=== PATIENT | female | born 1980 | race Caucasian/White ===

== ENCOUNTER 2020-08-08 12:14 | Outpatient (CLI) | payer OTHER, SELFPAY ==
--- NOTE | ~2020-08-08 | XR_ITS ---
XR foot LT min 3V DATE: 08/08/2020 12:52 INDICATION: Positive rheumatoid factor. Left foot pain. TECHNIQUE: 4 views COMPARISON: None FINDINGS: No fracture or dislocation, periosteal reaction or bone destruction. No erosive change. Rachel nt spaces are preserved. IMPRESSION: Negative Reviewed, dictated and finalized at location B. VIORAL CONSULTANT IMPRESSION: Negative
--- NOTE | ~2020-08-08 | XR_ITS ---
XR shoulder LT min 2V DATE: 08/08/2020 12:52 INDICATION: Left shoulder pain. Rheumatoid factor positive. TECHNIQUE: 4 views COMPARISON: None FINDINGS: No fracture or dislocation, periosteal reaction or bone destruction or abnormal soft tissue calcification. Normal alignment and preservation of joint spaces at the acromioclavicular and glenoh umeral joints. IMPRESSION: Negative Reviewed, dictated and finalized at location B. NG COACH IMPRESSION: Negative
--- NOTE | ~2020-08-08 | XR_ITS ---
XR hand BI arthritis min 3V DATE: 08/08/2020 12:52 INDICATION: Positive rheumatoid factor. Bilateral hand pain. TECHNIQUE: 4 views of each hand COMPARISON: None FINDINGS: No fracture, dislocation, periosteal reaction or bone destruction or erosive change. Joint spaces are preserved. No chondrocalcinosis. IMPRESSION: Negative Reviewed, dictated and finalized at location B. H ASSISTANT IMPRESSION: Negative
--- NOTE | ~2020-08-08 | XR_ITS ---
XR shoulder RT min 2V 08/08/2020 12:52 Indication: Right shoulder pain Procedure: 4 views right shoulder Comparison: No prior studies for comparison. Findings: No fracture, subluxation or dislocation. No significant soft tissue abnormality. No foreign bodies. Impression: 1: No acute bone or joint abnormality. Reviewed, dictated and finalized at location A. HOUSE CLERK Impression: 1: No acute bone or joint abnormality.
--- NOTE | ~2020-08-08 | XR_ITS ---
XR foot RT min 3V DATE: 08/08/2020 12:52 INDICATION: Right foot pain. Positive rheumatoid factor. TECHNIQUE: 4 views COMPARISON: None FINDINGS: Joint spaces are preserved. No erosive change. No fracture, dislocation, periosteal reaction or bone destruction. IMPRESSION: Negative Reviewed, dictated and finalized at location B. ER SORTER MACHINE IMPRESSION: Negative
== END 2020-08-08 12:15 | disposition home or self-care (01) ==
DX: M25.50 Pain in unspecified joint (principal); R76.8 Other specified abnormal immunological findings in serum
CPT/HCPCS: 73030; 73130; 73630

== ENCOUNTER 2021-02-09 22:32 | Emergency (ER) | payer OTHER, SELFPAY ==
--- NOTE | ~2021-02-09 | CT_ITS ---
EXAMINATION: CT brain wo con EXAM DATE: 02/09/2021 23:10 INDICATION: Head injury head injury to base of skull. Pain with confusion. TECHNIQUE: Spiral CT of the head was performed without contrast. Axial, coronal and sagittal images were reviewed. The dose-length product (DLP) for this examination was 605.33 mGy-cm. The exposure w as tailored according to patient size, and iterative reconstruction (ASIR) was used as additional dos e reduction technique. There is no prior study for comparison. FINDINGS: There is no acute intraparenchymal hemorrhage. No evidence of intraparenchymal brain mass lesion. No evidence of acute infarction. There is no mass effect or midline shift. The ventricles are normal in size. There are no extra-axial collections. There are no acute calvarial fractures. T he orbits are unremarkable. Soft tissue is unremarkable. Bilateral nasal cavity opacity and mild bi lateral ethmoid mucoperiosteal thickening. IMPRESSION: 1. No acute intracranial findings. 2. Sinus, ethmoid opacity. Reviewed, dictated and finalized at location G.
[2021-02-09 22:35] VITALS: BP 133/85; PULSE 98; RESP 20; TEMP 36.6; O2SAT 99
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
[2021-02-09] MEDS: IBUPROFEN 600 MG TABLET PO (23:05)
[2021-02-09] MEDS: LIDO 1%/EPINEPHRINE 1:100,000 20 ML VIAL INFILTRATE (23:14)
[2021-02-09 23:21] VITALS: BP 170/106; PULSE 107; RESP 20; TEMP 37.6; O2SAT 97
[2021-02-09 23:24] VITALS: BP 144/78; PULSE 88; RESP 20; O2SAT 99
== END 2021-02-09 23:34 | disposition home or self-care (01) ==
PROVIDERS: Emergency Provider Emergency Medicine
DX: S01.01XA Laceration without foreign body of scalp, initial encounter (principal); Y04.8XXA Assault by other bodily force, initial encounter
CPT/HCPCS: 12001; 70450; 99282; 99284; A9270

== ENCOUNTER 2021-10-09 09:33 | Emergency (ER) | payer OTHER, SELFPAY ==
[2021-10-09 09:40] VITALS: BP 144/84; PULSE 88; RESP 16; TEMP 36.4; O2SAT 100
--- NOTE | 2021-10-09 11:41 | ED.DENTAL ---
HPI - Dental/Oral General Chief complaint: Dental/Oral Stated complaint: swelling to face, poss dental issue Time Seen by Provider: 10/09/21 11:14 History of Present Illness HPI Narrative: Patient is a 41-year-old female who presents ER with facial swelling. She had dental pain last night to her upper frontal mouth with mild swelling. She woke up this morning and her upper lip was even more swollen. Pain is radiating to the ears bilaterally. No fevers chills or sweats. She has a bump above her eighth tooth. Related Data Allergies Allergy/AdvReac Type Severity Reaction Status Date / Time morphine Allergy Mild Itching Verified 01/05/16 20:33 MEPERIDINE HCL Allergy Unknown Uncoded 01/05/16 19:40 Review of Systems Constitutional: Constitutional: Denies chills and Denies fever(s) ENT: Denies dysphagia and Denies nasal congestion Comments: Dental pain Respiratory: Respiratory: Denies cough and Denies dyspnea PMFSH Past Medical History Medical History (Updated 10/09/21 @ 11:42 by Zachary Ron MD) Endometriosis GERD (gastroesophageal reflux disease) Surgical History Surgical History (Updated 02/09/21 @ 23:01 by Pavel Chin MD) H/O pelvic surgery Social History Social History (Updated 02/09/21 @ 23:02 by Pavel Chin MD) Smoking packs per day: 0.75 Smoking cigarettes per day: 15.0 Smoking status: Current every day smoker Tobacco type: cigarettes Alcohol intake: current Substance use: current Substance use type: marijuana Exam Narrative: GENERAL: Well-appearing, well-nourished, and in no acute distress. HEAD: Normocephalic, atraumatic. ENT: Mucous membranes moist. Apical abscess tooth #8. Mild swelling of the upper and lower lips. Normal posterior oropharynx. Tolerating oral secretions without issue. No stridor. NECK: Supple. NEURO: Alert and oriented x3. PSYCH: Normal mood and affect. Course Course Emergency Course: Patient tolerated drainage of abscess. Will start antibiotics and pain medication. Discharge home Vital Signs Vital signs: Vital Signs Temperature 97.6 F 10/09/21 09:40 Pulse Rate 88 10/09/21 09:40 Respiratory Rate 16 10/09/21 09:40 Blood Pressure 144/84 H 10/09/21 09:40 Pulse Oximetry 100 10/09/21 09:40 Temperature 97.6 F 10/09/21 09:40 Pulse Rate 88 10/09/21 09:40 Respiratory Rate 16 10/09/21 09:40 Blood Pressure 144/84 H 10/09/21 09:40 Pulse Oximetry 100 10/09/21 09:40 Procedures Abscess I/D oral: Date of Incision: 10/09/21 Time of Incision: 11:20 Local Anesthetic: none Technique: needle aspiration Irrigation: No Packing used?: none I&D Results: Pus Complications: other (none) Discharge Plan Discharge Clinical Impression: Dental abscess Patient Disposition: Home, Self-Care Condition: Stable Instructions: Antibiotic Form, Dental Abscess (ED) Additional Instructions: Follow-up with a dentist for further evaluation for your dental issues. Return the ER if you cannot breathe, you cannot swallow, you have additional concerns. Prescriptions: New amoxicillin-pot clavulanate 875-125 mg tablet 1 tablet PO Q12H Qty: 14 RF: 0 hydrocodone-acetaminophen 5-325 mg tablet 1 tablet PO Q6H PRN (Reason: pain) Qty: 12 RF: 0 Follow-up/Referrals: PHYSICIAN,LICENSED PSYCHOLOGIST [Primary Care Provider] - Stand Alone Forms: Work/School Release IP
== END 2021-10-09 11:56 | disposition home or self-care (01) ==
PROVIDERS: Emergency Provider Emergency Medicine
DX: K04.7 Periapical abscess without sinus (principal); K21.9 Gastro-esophageal reflux disease without esophagitis; N80.9 Endometriosis, unspecified; F17.210 Nicotine dependence, cigarettes, uncomplicated
CPT/HCPCS: 41800; 99283

== ENCOUNTER 2022-06-26 12:54 | Emergency (ER) | payer BC, SELFPAY ==
[2022-06-26 13:15] VITALS: BP 113/81; PULSE 103; RESP 20; TEMP 36.4; O2SAT 100
--- NOTE | 2022-06-26 13:26 | ED.URI ---
HPI - URI/Sore Throat General Chief Complaint: Anxiety Stated Complaint: shortness of breath,dizzy, loss of feeling in fing Time Seen by Provider: 06/26/22 13:20 Source: patient Mode of arrival: ambulatory Limitations: no limitations History of Present Illness HPI Narrative: Radha is a 42-year-old female patient presenting to clinic today with complaints of shortness of breath dizziness, paresthesia, chest pain, and feeling near syncopal. She reports that this started Tuesday night. She is a current smoker. MD elicited complaint: sore throat and nasal congestion Related Data Allergies Allergy/AdvReac Type Severity Reaction Status Date / Time morphine Allergy Mild Itching Verified 01/05/16 20:33 MEPERIDINE HCL Allergy Unknown Uncoded 01/05/16 19:40 Review of Systems Review of Systems: Pertinent positives per HPI. Patient denies any fever, chills, rash, headache, visual changes, dizziness, runny nose, sore throat, palpitations, nausea, vomiting, diarrhea, constipation, abdominal pain, or any urinary issues. [facility] Past Medical History Medical History Endometriosis GERD (gastroesophageal reflux disease) Surgical History Surgical History H/O pelvic surgery Social History Social History Smoking packs per day: 0.75 Smoking cigarettes per day: 15.0 Smoking status: Current every day smoker Tobacco type: cigarettes Alcohol intake: current Substance use: current Substance use type: marijuana Comments At the time of my signature, I reviewed and agree with the nursing past medical, surgical, social, and family history. There is no relevant family history pertinent to the patient complaint. Exam Narrative: General: Well-developed, well nourished, ill appearing and in mild distress Head: Normocephalic, atraumatic Eyes: Pupils equally round and reactive to light bilaterally, EOM intact, sclera and conjunctive clear, no discharge, lids normal Ears: TMs intact and clear, ear canals clear, no drainage, grossly hearing normal. Nose: Nares patent, clear nasal discharge, no inflammation, no sinus tenderness. Mouth: Oral pharynx without lesions or masses, good dentition, MMM. Oropharynx red Neck: Supple, trachea midline, no enlargement of anterior or posterior cervical nodes, no thyroid masses or goiter palpable. Cardio: Regular rate and rhythm, s1 and s2 normal, no murmur appreciated. Resp: Inspiratory and expiratory wheezing and rhonchi, no rales or rubs Course Course Emergency Course: Portions of this record may have been created with voice recognition software. Level of Care: Express Care Visit Vital Signs Vital signs: Vital Signs Temperature 36.4 C 06/26/22 13:15 Pulse Rate 103 H 06/26/22 13:15 Respiratory Rate 20 06/26/22 13:15 Blood Pressure 113/81 06/26/22 13:15 Pulse Oximetry 100 06/26/22 13:15 Temperature 36.4 C 06/26/22 13:15 Pulse Rate 103 H 06/26/22 13:15 Respiratory Rate 20 06/26/22 13:15 Blood Pressure 113/81 06/26/22 13:15 Pulse Oximetry 100 06/26/22 13:15 Vital signs reviewed Transfer Transfered to: [facility] Transportation: Other (Private car) Transfer rationale: Shortness of breath, chest pain, dizziness, near syncope, paresthesias Accepting physician: Maddie BRISENO Transfer comments: Transfer via private car MDM - URI/Sore Throat MDM Narrative Medical decision making narrative: At the time of visit patient is sitting on the exam table feeling as though she is going to pass out. Has inspiratory and expiratory wheezing and rhonchi. Recommend transfer to the ED for further evaluation as she is complaining of some midsternal chest pain as well. Contacted [facility] at [facility] and she accepts patient Differential Diagnosis Differential diagnosis: Likely
== END 2022-06-26 13:30 | disposition short-term general hospital (02) ==
PROVIDERS: Emergency Provider Nurse Practitioner Family; PCP Family Medicine
DX: R07.9 Chest pain, unspecified (principal); R06.02 Shortness of breath; R20.2 Paresthesia of skin; R55 Syncope and collapse; F41.9 Anxiety disorder, unspecified; F17.210 Nicotine dependence, cigarettes, uncomplicated; F12.90 Cannabis use, unspecified, uncomplicated; N80.9 Endometriosis, unspecified; K21.9 Gastro-esophageal reflux disease without esophagitis
CPT/HCPCS: 99211; 99212; G0463

== ENCOUNTER 2022-06-26 13:52 | Emergency (ER) | payer BC, SELFPAY ==
[2022-06-26] VITALS (12 sets, daily range): BP systolic 106–148; BP diastolic 76–97; PULSE 86–112; RESP 13–22; O2SAT 100
--- NOTE | ~2022-06-26 | XR_ITS ---
XR chest 2V DATE: 06/26/2022 14:49 INDICATION: Shortness of breath TECHNIQUE: AP and lateral views COMPARISON: 01/05/2016 PA and lateral chest FINDINGS: There is bilateral hyperinflation with increased retrosternal airspace and flattening the d iaphragm, suggesting obstructive airways disease. No pulmonary infiltrate or consolidation or pulmona ry mass lesion is evident. Normal heart size. No hilar or mediastinal enlargement. Mild levoscoliosis of the thoracolumbar spine. IMPRESSION: Bilateral hyperinflation suggesting obstructive airways disease Reviewed, dictated and finalized at location A. NER OPERATOR
--- NOTE | ~2022-06-26 | CT_ITS ---
EXAMINATION: CTA chest PE protocol DATE: 06/26/2022 16:33 INDICATION: Shortness of breath, tachycardia. Syncope. TECHNIQUE: Computed tomography angiography (CTA) of the chest was performed with 80 mL Omnipaque-350 intravenous contrast timed to evaluate the pulmonary arteries. Coronal maximum intensity projection 3 D-reconstructions were created by the technologist. Automated exposure control and iterative reconstr uction technique were employed. Exam dose: 152.98 mGy-cm total exam DLP. COMPARISON: 06/26/2022 AP and lateral chest FINDINGS: The pulmonary arteries are moderately opacified by contrast material, without evidence of p ulmonary embolism. No thoracic aortic aneurysm or dissection. No hilar or mediastinal mass lesion or lymphadenopathy. Normal heart size. No pericardial or pleural effusion. No pulmonary infiltrate or consolidation or pulmonary mass lesion. Included skeletal structures are unremarkable. IMPRESSION: No evidence of pulmonary embolism Reviewed, dictated and finalized at Location A. Reviewed, dictated and finalized at location A. DENTIAL PROPERTY MANAGER
--- NOTE | 2022-06-26 14:00 | ECG_ITS ---
Measurements Intervals [place] Rate: 99 P: 87 ID: 117 QRS: 81 QRSD: 69 T: 79 QT: 356 QTc: 458 Interpretive Statements SINUS RHYTHM WITH SHORT ID INTERVAL BORDERLINE ECG NO PREVIOUS ECG AVAILABLE FOR COMPARISON Electronically Signed On 06-26-2022 21:54:05 MACHINE II COREMAKER by Karthik Mcintyre D.O.
--- NOTE | 2022-06-26 14:01 | ED.SOB ---
HPI - SOB/Dyspnea General Chief Complaint: Shortness of Breath/Dyspnea Stated Complaint: sob Time Seen by Provider: 06/26/22 13:55 History of Present Illness HPI Narrative: Patient is a 42-year-old female here from urgent care for evaluation of shortness of breath over the past 4 days. Patient states that she has felt winded on minimal exertion, in addition to noting a productive cough, sore throat, and nasal congestion. Patient states everyone at home has similar symptoms. She is a smoker but has cut back recently. No leg swelling, fevers, nausea or vomiting, rashes. No history of lung or cardiac disease. Also notes anxiety. No suicidal or homicidal ideation. Related Data Allergies Allergy/AdvReac Type Severity Reaction Status Date / Time meperidine Allergy Severe Swelling Verified 06/26/22 14:12 of Lip/Tongue/Throat morphine Allergy Mild Itching Verified 06/26/22 14:12 latex Allergy Itching Verified 06/26/22 14:12 adhesive AdvReac Irritable Verified 06/26/22 14:12 Review of Systems Review of Systems: Gen: Denies fevers or chills Eyes: Denies eye pain or visual change ENT: Reports congestion. Respiratory: Reports shortness of breath and cough CV: Denies chest pain or palpitations GI: Denies abdominal pain nausea, emesis or diarrhea denies burning, urgency, frequency or hematuria Musculoskeletal: Denies back pain or muscle pain Neuro: Denies numbness, tingling, weakness or focal weakness Skin: Denies rash Except as documented, all other systems reviewed and negative [facility] Past Medical History Medical History Endometriosis GERD (gastroesophageal reflux disease) Surgical History Surgical History H/O pelvic surgery Social History Social History Smoking packs per day: 0.75 Smoking cigarettes per day: 15.0 Smoking status: Current every day smoker Tobacco type: cigarettes Alcohol intake: current Substance use: current Substance use type: marijuana Exam Narrative: APPEARANCE: Uncomfortable appearing. Head: Normocephalic and atraumatic. EYES: PERRLA/EOMI, conjunctivae clear NOSE: No nasal drainage EARS: External ear normal in appearance THROAT: Oropharynx is clear. Mucous membranes are moist. NECK: Supple. No adenopathy, no masses. RESPIRATORY: Expiratory wheezing and rhonchi noted throughout lung quarles. Airway patent, respirations nonlabored. CARDIOVASCULAR: Regular rate and rhythm without murmurs, rubs, or gallops. ABDOMINAL: Normoactive bowel sounds. Soft, nontender, nondistended. No rebound tenderness or guarding. MUSCULOSKELETAL: Extremities are warm and well-perfused. Moves all extremities well. No edema. NEURO: Normal speech. No focal neurologic deficits. SKIN: Skin is warm and dry. No rashes. PSYCHIATRIC: Normal affect/mood. Course Vital Signs Vital signs: Vital Signs Respiratory Rate 17 06/26/22 14:05 Blood Pressure 142/90 H 06/26/22 14:05 Pulse Oximetry 100 06/26/22 14:05 Oxygen Delivery Room Air 06/26/22 14:05 Pulse Rate 108 H 06/26/22 17:00 Respiratory Rate 21 H 06/26/22 17:00 Blood Pressure 106/94 H 06/26/22 16:47 Pulse Oximetry 100 06/26/22 17:00 Oxygen Delivery Room Air 06/26/22 14:13 MDM - SOB/Dyspnea MDM Narrative Medical decision making narrative: 42-year-old female here for evaluation of shortness of breath over the past 3 days in addition to upper respiratory infectious symptoms. Patient is anxious appearing upon arrival and has diffuse wheezes throughout her lung quarles although her vital signs are normal. She was given a breathing treatment, steroids, Ativan for anxiety with resolution of her symptoms. CTA PE is negative. Chest x-ray shows hyperinflation. EKG and troponin are nonischemic. Strongly suspect underlying COPD given
[2022-06-26] MEDS: ALBUTEROL SULFATE NEB 2.5 MG/3 ML INH 5 MG INHALATION (14:25)
[2022-06-26] MEDS: predniSONE 20 MG TABLET 40 MG PO (14:33)
[2022-06-26 14:35] LABS: Basophils Absolute Auto 0.1 K/mm3 (0.0-0.1); Basophils Percent Auto 0.5 % (0.2-1.2); Eosinophils Absolute Auto 0.4 K/mm3 (0-0.3); Eosinophils Percent Auto 3.4 % (0-4.4); Hematocrit 43.7 % (37.0-47.0); Hemoglobin 14.7 g/dL (12.0-15.0); Immature Granulocyte Absolute 0.03 K/mm3 (0.00-0.031); Immature Granulocyte Percent A 0.3 % (0-0.5); Lymphocytes Absolute Auto 3.42 K/mm3 (0.9-3.2); Mean Corpuscular HGB Conc 33.6 g/dl (32-36); Mean Corpuscular Hemoglobin 31.5 pg (26-34); Mean Corpuscular Volume 93.8 fl (80-100); Mean Platelet Volume 11.7 fl (7.4-10.4); Monocytes Absolute Auto 1.1 K/mm3 (0.1-0.6); Neutrophils Percent Auto 54.8 % (45.5-73.1); Platelet Count Result 325 k/mm3 (150-375); Red Blood Count 4.66 M/mm3 (4.2-5.4); Red Cell Distribution Width 12.1 % (11.5-14.5)
[2022-06-26 14:40] LABS: Alanine Aminotransferase 17 U/L (6-35); Albumin Level 4.4 g/dL (3.5-5.1); Alkaline Phosphatase 97 U/L (38-126); Anion Gap 10 mmol/L (8-16); Aspartate Amino Transferase 25 U/L (14-36); Bilirubin,Total 0.5 mg/dL (0.2-1.3); Blood Urea Nitrogen 10 mg/dL (7-17); Calcium 9.2 mg/dL (8.4-10.2); Carbon Dioxide 22 mmol/L (22-30); Chloride 106 mmol/L (98-107); Estimated CRCL calculation 59 ml/min; Estimated Glomerular Filt Rate > 60; Glucose 90 mg/dL (65-110); Potassium 3.8 mmol/L (3.4-5.0); Sodium 138 mmol/L (137-145)
[2022-06-26 14:59] LABS: Troponin I < 0.012 ng/mL (0.000-0.034)
[2022-06-26 15:02] LABS: Influenza A QL RT-PCR Negative (Negative); Influenza B QL RT-PCR Negative (Negative); SARS-CoV-2 RNA PCR Negative
[2022-06-26] MEDS: LORazepam (*CRX) 0.5 MG TABLET PO (15:19)
== END 2022-06-26 17:02 | disposition home or self-care (01) ==
PROVIDERS: Emergency Provider Physician Assistant; PCP Family Medicine
DX: R06.02 Shortness of breath (principal); Z20.822 Contact with and (suspected) exposure to COVID-19; K21.9 Gastro-esophageal reflux disease without esophagitis; N80.9 Endometriosis, unspecified; F17.210 Nicotine dependence, cigarettes, uncomplicated; R94.31 Abnormal electrocardiogram [ECG] [EKG]
CPT/HCPCS: 36415; 71046; 71275; 80053; 84484; 85025; 87636; 93005; 94640; 99284; A9270; J7512; Q9967